=== PATIENT | female | born 1960 | race Caucasian/White ===

== ENCOUNTER → 2017-04-16 | Outpatient (CLI) | payer OTHER ==
[~2017-04-16] MED LIST: ALBUAER19 INH; CALC500C70 PO; FERR1TAB23 PO; FLNIN NAE; LORA0.5T12 PO; VITBC PO
--- NOTE | 2017-04-16 13:54 | MAMMOGRAPHY REPORT ---
BILATERAL DIGITAL SCREENING MAMMOGRAM TOMOSYNTHESIS WITH CAD: 04/16/2017 CLINICAL HISTORY: Routine screening. Patient has no complaints. TECHNIQUE: Breast tomosynthesis in addition to standard 2D mammography was performed. Current study was also evaluated with a Computer Aided Detection (CAD) system. COMPARISON: Comparison is made to exams dated: 04/24/2016 mammogram, 04/17/2015 mammogram, 4 mammogram, 04/14/2013 mammogram, 04/20/2012 mammogram, and 04/14/2011 mammogram - [facility]. BREAST COMPOSITION: The tissue of both breasts is heterogeneously dense, which may obscure small mas ses. FINDINGS: No suspicious masses, calcifications, or areas of architectural distortion are noted in ei ther breast. There has been no significant interval change compared to prior exams. Bilateral benign -appearing calcifications are again noted. Partially circumscribed and partially obscured mass in th e left inferior breast is stable dating back to at least the 2007 exam. A linear scar marker denotes a scar on the left upper outer breast. IMPRESSION: ACR BI-RADS CATEGORY 2: BENIGN There is no mammographic evidence of malignancy. A 1 year screening mammogram is recommended. The pa tient will receive written notification of the results. Approximately 10% of breast cancers are not detected with mammography. A negative mammographic report should not delay biopsy if a clinically suggestive mass is present. Debbie Obrien M.D. /:04/16/2017 10:50:31 Senior Training [employer] Development Rep: Adriana MERRILL(Chavo)(Sergio), [facility] letter sent: Normal 1/2 BI-RADS Code: ACR BI-RADS Category 2: Benign
== END | disposition home or self-care (01) ==
LOC: C.MAMM 10:00
PROVIDERS: ATTEND Internal Medicine
DX: Z12.31 Encounter for screening mammogram for malignant neoplasm of breast (principal)

== ENCOUNTER 2020-02-25 00:23 | Observation (INO) ==
--- NOTE | 2020-02-25 00:26 | Emergency Department Note ---
Impression & Plan Stroke-like episode, Acute headache, Acute left-sided weakness, Paresthesia of left arm and leg ED Provider Note Name: DEVAN CADENA Age: 59 Sex: F Arrives Via: Ambulance Informant: Patient, EMS, ED Provider: Sami Chang MD Chief Complaint: headache Impression: Stroke-Like Episode Acute Headache Acute Left-Sided Weakness Paresthesias of left arm and leg Medical Decision Makin yr old female with history of HTN, Asthma, Anxiety, Kidney Stone, DLP, GERD arrives with acute headache. Onset 11:30pm acute headache with left sided weakness and paresthesias. EMS contacted me from field to review case and noted patient with symptoms on their arrival but now resolution of all weakness. I met patient at bedside on EMS arrival and rapid stroke eval revealed left facial weakness and mild left arm/leg weakness and thus STROKE ALERT Called. Patient taken emergently to CT where CTa head w/wo contrast and cta neck w con revealed no acute findings. Reviewed with Stroke Neuro who advised mixing TPA and they would eval patient on telestroke. Patient taken to trauma bay and noted to have improving left arm strength and even moving blankets without any problem. arrived shortly thereafter and patient with continued improvement of symptoms. Dr Lopez evaluated patient at length and after discussion with pt/ plan to not give TPA as she has essentially complete resolution, especially given notes this has clearly happened previous. We discussed plan and she was given ASA, IV Depakote at Neuro's advise. She was further discussed with Hospitalist who will bring in for stroke work-up and evaluation. Given fact that is seems that this is not first time this is happened, though possibly the most severe case, I am suspicious for atypical migraine rather than acute ischemia, however she will clearly need to come in for further work-up and management to rule this out. She does not have evidence of sepsis/meningitis and I do not feel this is drug induced. Prior Medical Record and Triage/Nursing Notes reviewed by Me Additional history obtained from patient's Differentials:Infection, dehydration, metabolic abnormality, hypo/hyperglycemia, electrolyte disturbance, anemia, hypoxia, cardiac sources, intracerebral event, toxicologic, neurologic, as well as other pathologies. Vital Signs: reviewed and remarkable for HTN Interventions: ASA 324mg PO, Valproic Acid 500mg IV Labs:Reviewed and remarkable for no significant abnormalities Imaging:[facility] Radiologist interpretation reviewed by me: CT Head angio w wo con. cta neck w con no acute findings EKG:Per My Interpretation: Indication Stroke: NSR 86 bpm, qtc 483. No Ectopy. No Ischemia. Compared to EKG 05/26/2018, no significant changes. Cardiac/Tele Monitoring: Cardiac Monitoring: An Order was placed for continuous cardiac monitoring. The monitor shows a rate of 80 with a normal sinus rhythm. Consults:Stroke Neurologist Dr Lopez: Initially mix TPA though after furth er evaluation patient advised not giving TPA. Advised ASA and IV Valproic Plan: Disposition:Hospitalization. Condition: Good Blood pressure:Elevated - Referred to Hospitalist Prescriptions:none PDMP: n/a History of Present Illness:59 female arrives for evaluation of sudden onset headache at 11:30 pm about 30 minutes prior to arrival. Associated with photophobia and inability to use arm. EMS arrived and noted left arm weakness which rapidly resolved. Patient hypertensive. No medications prior to arrival. Patient denies headache history. No trauma nor injuries. Notes associated nausea and initially some mild chest discomfort which resolved. States she feels weak. Patient states on arrival this has never happened previously. Denies shob, neck pain/stiffness, fevers, abdominal pain, back pain, urinary symptoms, rashes, swelling nor other symptoms. ROS: See above HPI for pertinent positives & negatives. A total of 10 systems reviewed and were otherwise negative. Past Medical History:See Below Past Surgical History:See Below Family History:See Below Social History:See Below Home Medications:See Below Allergies:Clindamycin, Carbamazepine Vitals:Blood Pressure: 171/91, Pulse 74, RR 20, T 37.1C, O2 95% on RA Physical Exam: GENERAL: Patient is anxious appearing and in mild distress. EYES: No scleral icterus, unremarkable pupils. ENT: Mucous membranes moist, no nasal congestion. NECK: No masses appreciated, nomeningismus, trachea is midline. RESPIRATORY: No dyspnea. Clear to auscultation and equal bilaterally. No wheeze, no rhonchi. CARDIOVASCULAR: Regular rate and rhythm.No murmurs, rubs, gallops appreciated. GASTROINTESTINAL: Abdomen soft, non-tender, no peritonitis.Bowel sounds positive.No masses appreciated. BACK: No midline tenderness, no CVA tenderness EXTREMITIES: Normal motion all extremities, no cyanosis, no edema. NEUROLOGIC: Left facial weakness (lower worse than upper), left arm 4/5 hand strength, 5/5 prox. Left leg 4/5 prox and 4/5 distal. Right side 5/5. Perceived decreased sensation left side of body. Alert and oriented. SKIN: No rash, no jaundice, no diaphoresis. PSYCH: Appropriate GCS: 15 ED Course: Times/Reassessments: Extended bedside management and evaluations throughout ED stay Critical Care: I have personally spent 45 minutes of critical care time in the direct management of this patient. Acute Stroke episode with stroke alert called, TPA mixed and Neurology acute evaluation. This was a life/limb threatening event. This 45 minutes is in excess of all separately billable procedures. Sami Chang MD Past Med/Surg History Medical History (Updated 02/25/20 @ 07:30 by Sami Chang MD) Abnormal vaginal bleeding Chronic interstitial cystitis DUB (dysfunctional uterine bleeding) Kidney stone Neuralgia Trigeminal neuralgia Surgical History (Updated 08/26/19 @ 12:21 by Keyla Amor MD, FACOG) S/P breast biopsy 2008, needle localization, Dr. Rollins, benign calcifications S/P section S/P colonoscopy S/P endometrial ablation 2014 Family History (Updated 04/01/19 @ 18:04 by Velma Robertson) Mother Ovarian cancer Social History (Updated 05/19/19 @ 15:34 by Latha Arriola) Smoking Status: Never smoker Hx Alcohol Use: No Hx Substance Use: No Preferred Language: Urdu Communication Ability: Effective Uke Operator Required: No Beliefs That Will Affect Care: None marital status: Current Living Situation: Spouse Other Information That Helps Us Care for You: No Feels Safe at Home: Yes Safety Concerns: Feels Safe At This Time Allergies Allergies Allergy/AdvReac Type Severity Reaction Status Date / Time carbamazepine Allergy Unknown NAUSEA Verified 02/25/20 01:01 clindamycin AdvReac Mild METALLIC Verified 02/25/20 01:01 TASTE IN MOUTH Home Meds Home Medications Medication Instructions Recorded Confirmed lorazepam 0.5 mg PO TID PRN #0 03/21/13 02/25/20 vitamin B complex 1 tab PO DAILY #0 03/21/13 02/25/20 atorvastatin 10 mg tablet 10 mg PO DAILY tab 04/01/19 02/25/20 cetirizine 10 mg tablet 10 mg PO BID PRN tab 04/01/19 02/25/20 omeprazole 20 mg capsule,delayed 20 mg PO BID cap 04/01/19 02/25/20 release cyclobenzaprine 10 mg PO BID PRN 02/25/20 02/25/20 Results & Data (ED) Vital Signs Vital Signs - 24 hr 02/25/20 00:26 02/25/20 00:27 02/25/20 00:47 Pulse Rate 74 73 Pulse Rate from SpO2 Sensor Respiratory Rate 16 13 Respiratory Depth Normal Blood Pressure 168/99 H 168/99 H Blood Pressure Mean 126 122 Blood Pressure Position Lying Pulse Oximetry 98 Oxygen Delivery Method Room Air Sepsis Recent Fever Within 48 Hours No Sepsis New/Unexplained Change in Mental Status No Sepsis Action Taken by Nursing No Action Required 02/25/20 00:50 02/25/20 01:00 02/25/20 01:10 Pulse Rate 70 70 76 Pulse Rate from SpO2 Sensor 70 69 76 Respiratory Rate 15 22 Respiratory Depth Blood Pressure 175/92 H 178/95 H 179/95 H Blood Pressure Mean 110 116 125 Blood Pressure Position Pulse Oximetry 95 96 97 Oxygen Delivery Method Sepsis Recent Fever Within 48 Hours Sepsis New/Unexplained Change in Mental Status Sepsis Action Taken by Nursing 02/25/20 01:15 02/25/20 01:17 02/25/20 01:30 Pulse Rate 67 67 65 Pulse Rate from SpO2 Sensor 67 67 Respiratory Rate 14 14 20 Respiratory Depth Blood Pressure 183/93 H 169/94 H Blood Pressure Mean 109 112 Blood Pressure Position Pulse Oximetry 96 96 96 Oxygen Delivery Method Sepsis Recent Fever Within 48 Hours Sepsis New/Unexplained Change in Mental Status Sepsis Action Taken by Nursing 02/25/20 02:00 Pulse Rate 63 Pulse Rate from SpO2 Sensor 63 Respiratory Rate 13 Respiratory Depth Blood Pressure 151/90 H Blood Pressure Mean 102 Blood Pressure Position Pulse Oximetry 96 Oxygen Delivery Method Room Air Sepsis Recent Fever Within 48 Hours Sepsis New/Unexplained Change in Mental Status Sepsis Action Taken by Nursing Laboratory Data Result diagrams: 02/25/20 05:37 02/25/20 05:37 Lab Results 02/25/20 02/25/20 02/25/20 Range/Units 00:49 00:49 00:49 WBC 4.00 L (4.8-10.8) K/uL RBC 4.17 L (4.2-5.4) M/uL Hgb 12.7 (12.0-16.0) g/dL Hct 37.7 (37-47) % MCV 90.4 (80-100) fL MCH 30.5 (25-34) pg MCHC 33.7 (32-36) g/dL RDW Std Deviation 40.9 (36.4-46.3) fL RDW Coeff of Keisha 12.4 (11.5-14.5) % Plt Count 181 (130-400) K/uL MPV 10.2 (7.4-10.4) fL Immature Gran % (Auto) 0.0 % Neut % (Auto) 49.9 % Lymph % (Auto) 37.0 % [place] % (Auto) 7.8 % Eos % (Auto) 5.0 % Baso % (Auto) 0.3 % Neut # (Auto) 2.00 (1.4-6.5) K/uL Lymph # (Auto) 1.48 (1.2-3.4) K/uL [place] # (Auto) 0.31 (0.11-0.59) K/uL Eos # (Auto) 0.20 (0-0.5) K/uL Baso # (Auto) 0.01 (0-0.2) K/uL Immature Gran # (Auto) 0.00 (0.00-0.02) K/uL PT 11.6 (9.0-12.0) Seconds INR 1.1 (0.9-1.1) APTT 26.8 (21.0-31.0) Seconds PTT Ratio 1.0 Sodium (136-145) mmol/L Potassium (3.5-5.1) mmol/L Chloride (98-107) mmol/L Carbon Dioxide (21-32) mmol/L Anion Gap (3-11) BUN (7-18) mg/dl Creatinine (0.6-1.2) mg/dl Est Cr Clr Drug Dosing ml/min Est GFR ( Amer) Est GFR (Non-Af Amer) BUN/Creatinine Ratio (10-20) Glucose (70-99) mg/dl Calcium (8.5-10.1) mg/dl Magnesium (1.8-2.4) mg/dl Total Bilirubin (0.2-1) mg/dl AST (15-37) U/L ALT (12-78) U/L Alkaline Phosphatase (45-117) U/L Troponin I (0-0.045) ng/ml Total Protein (6.4-8.2) gm/dl Albumin (3.4-5.0) gm/dl Globulin (2.5-4.0) gm/dl Albumin/Globulin Ratio (0.9-2) Blood Type O Positive Antibody Screen NEGATIVE 02/25/20 Range/Units 00:49 WBC (4.8-10.8) K/uL RBC (4.2-5.4) M/uL Hgb (12.0-16.0) g/dL Hct (37-47) % MCV (80-100) fL MCH (25-34) pg MCHC (32-36) g/dL RDW Std Deviation (36.4-46.3) fL RDW Coeff of Keisha (11.5-14.5) % Plt Count (130-400) K/uL MPV (7.4-10.4) fL Immature Gran % (Auto) % Neut % (Auto) % Lymph % (Auto) % [place] % (Auto) % Eos % (Auto) % Baso % (Auto) % Neut # (Auto) (1.4-6.5) K/uL Lymph # (Auto) (1.2-3.4) K/uL [place] # (Auto) (0.11-0.59) K/uL Eos # (Auto) (0-0.5) K/uL Baso # (Auto) (0-0.2) K/uL Immature Gran # (Auto) (0.00-0.02) K/uL PT (9.0-12.0) Seconds INR (0.9-1.1) APTT (21.0-31.0) Seconds PTT Ratio Sodium 137 (136-145) mmol/L Potassium 3.3 L (3.5-5.1) mmol/L Chloride 104 (98-107) mmol/L Carbon Dioxide 29 (21-32) mmol/L Anion Gap 4.0 (3-11) BUN 10 (7-18) mg/dl Creatinine 0.71 (0.6-1.2) mg/dl Est Cr Clr Drug Dosing 75.8 ml/min Est GFR ( Amer) 107.3 Est GFR (Non-Af Amer) 92.6 BUN/Creatinine Ratio 14.3 (10-20) Glucose 97 (70-99) mg/dl Calcium 8.7 (8.5-10.1) mg/dl Magnesium 2.1 (1.8-2.4) mg/dl Total Bilirubin 0.4 (0.2-1) mg/dl AST 14 L (15-37) U/L ALT 13 (12-78) U/L Alkaline Phosphatase 68 (45-117) U/L Troponin I < 0.015 (0-0.045) ng/ml Total Protein 6.3 L (6.4-8.2) gm/dl Albumin 3.2 L (3.4-5.0) gm/dl Globulin 3.1 (2.5-4.0) gm/dl Albumin/Globulin Ratio 1.0 (0.9-2) Blood Type Antibody Screen Administered Medications Sodium Chloride (Nss 1000ml) 1,000 mls @ 100 mls/hr IV .Q10H OTONIEL Stop: 02/25/20 16:00 Last Admin: 02/25/20 04:23 Dose: 100 mls/hr Documented by: [id number] Discontinued Medications Alteplase, Recombinant (Tpa For Stroke) 1 ea IV NOW STA; Protocol Stop: 02/25/20 00:52 Last Admin: 02/25/20 01:52 Dose: Not Given Documented by: [id number] Aspirin (Aspirin Chew 324 Mg) 324 mg PO NOW STA Stop: 02/25/20 01:43 Last Admin: 02/25/20 01:58 Dose: 324 mg Documented by: [id number] Alteplase, Recombinant 6.2 mg/ (Syringe) 6.2 mls @ 6.2 mls/min IV ONCE ONE Stop: 02/25/20 01:02 Last Admin: 02/25/20 01:53 Dose: Not Given Documented by: [id number] Alteplase, Recombinant 55 mg/ (EMPTY BAG) 55 mls @ 55 mls/hr IV ONCE ONE Stop: 02/25/20 01:03 Last Admin: 02/25/20 01:53 Dose: Not Given Documented by: [id number] Valproic Acid 500 mg/ Dextrose 55 mls @ 55 mls/hr IV NOW STA Stop: 02/25/20 02:41 Last Infusion: 02/25/20 02:58 Dose: 0 mls/hr Documented by: [id number] Admin: 02/25/20 01:58 Dose: 55 mls/hr Documented by: [id number] Ioversol (Optiray 320 125ml) 119 ml IV ONCE ONE Stop: 02/25/20 01:13 Last Admin: 02/25/20 01:12 Dose: 119 ml Documented by: [id number] Discharge Plan Visit Data Chief Complaint: Headache Stated Complaint: HEADACHE/NEURO SYMPTOMS ED Provider: Sami Chang Discharge Problem: Stroke-like episode, Acute headache, Acute left-sided weakness, Paresthesia of left arm and leg Patient Disposition: Admitted As Inpatient Discharge Instructions Interventions: ED Discharge Assessment Last Done: 02/25/20 03:33 Discharge Problem: Acute headache Qualifiers: Headache type: unspecified Intractability: not intractable Qualified Code(s): R51 - Headache
[2020-02-25] MEDS ORDERED: TPA for Stroke IV STA (00:51)
[2020-02-25 01:01] LABS: Basophils # (auto) 0.01 K/uL (0-0.2); Basophils % (auto) 0.3 %; Hematocrit (blood only) 37.7 % (37-47); Hemoglobin 12.7 g/dL (12.0-16.0); Lymphocytes # (auto) 1.48 K/uL (1.2-3.4); Mean Corpuscular Hemoglobin 30.5 pg (25-34); Mean Corpuscular Hgb Conc 33.7 g/dL (32-36); Mean Corpuscular Volume 90.4 fL (80-100); Mean Platelet Volume 10.2 fL (7.4-10.4); Monocytes # (auto) 0.31 K/uL (0.11-0.59); Monocytes % (auto) 7.8 %; Neutrophils % (auto) 49.9 %; Platelet Count 181 K/uL (130-400); RDW Coefficient of Variation 12.4 % (11.5-14.5); RDW Standard Deviation 40.9 fL (36.4-46.3); Red Blood Count 4.17 M/uL (4.2-5.4)
[2020-02-25] MEDS ORDERED: ALTEPLASE BOLUS IV ONE (01:01)
[2020-02-25] MEDS ORDERED: RECOMBINANT IV ONE (01:02)
[2020-02-25] MEDS ORDERED: PRIMARY PLUMSET, PE LINED TUBING, 113 IN, NON-DEHP (2260-0500) IV ONE (01:02)
[2020-02-25] MEDS ORDERED: ALTEPLASE IV ONE (01:02)
[2020-02-25] MEDS ORDERED: OPTIRAY 320 125ml IV ONE (01:12)
[2020-02-25 01:14] LABS: INR 1.1 (0.9-1.1); Partial Thromboplastin Time 26.8 Seconds (21.0-31.0); Prothrombin Time 11.6 Seconds (9.0-12.0)
[2020-02-25 01:20] LABS: Alanine Aminotransferase 13 U/L (12-78); Albumin Level 3.2 gm/dl (3.4-5.0); Aspartate Aminotransferase 14 U/L (15-37); BUN Creatinine Ratio 14.3 (10-20); Blood Urea Nitrogen 10 mg/dl (7-18); Calcium 8.7 mg/dl (8.5-10.1); Carbon Dioxide 29 mmol/L (21-32); Chloride 104 mmol/L (98-107); Creatinine Clr Calc Pharmacy 75.8 ml/min; Est GFR (African American) 107.3; Est GFR (Non-African American) 92.6; Glucose 97 mg/dl (70-99); Magnesium 2.1 mg/dl (1.8-2.4); Potassium 3.3 mmol/L (3.5-5.1); Sodium 137 mmol/L (136-145)
[2020-02-25 01:25] LABS: Alkaline Phosphatase 68 U/L (45-117); Bilirubin,Total 0.4 mg/dl (0.2-1); Globulin 3.1 gm/dl (2.5-4.0); Total Protein 6.3 gm/dl (6.4-8.2); Troponin I < 0.015 ng/ml (0-0.045)
[2020-02-25] MEDS ORDERED: ASPIRIN CHEW 324 MG PO STA (01:42)
[2020-02-25] MEDS ORDERED: VALPROATE SOD 500 MG in DEXTROSE 5% 50 ML IV STA (01:42)
[2020-02-25] MEDS ORDERED: NITROGLYCERIN SL 0.4 MG/TAB TAB SL PRN (04:01)
[2020-02-25] MEDS ORDERED: ACETAMINOPHEN 325 MG TAB PO PRN (04:01)
[2020-02-25] MEDS ORDERED: LORazepam 0.5 MG TAB PO PRN (04:01)
[2020-02-25] MEDS ORDERED: CETIRIZINE HCL 10 MG TABLET PO PRN (04:01)
[2020-02-25] MEDS ORDERED: SODIUM CHLORIDE 0.9% 1000ML 1,000 ML IV SCH (04:01)
[2020-02-25] MEDS ORDERED: POLYETHYLENE (MIRALAX) 17 GM PACK PO PRN (04:01)
[2020-02-25] MEDS ORDERED: PHARMACIST DISCHARGE MED REC CONSULT PRN (04:01)
[2020-02-25] MEDS ORDERED: ONDANSETRON INJ 2 MG/ML 2 ML VIAL IV PRN (04:01)
[2020-02-25] MEDS ORDERED: CYCLOBENZAPRINE HCL 10 MG TAB PO PRN (04:11)
--- NOTE | 2020-02-25 04:41 | History and Physical Report ---
DATE OF ADMISSION: 02/25/2020 CHIEF COMPLAINT: Headache and left-sided numbness. HISTORY OF PRESENT ILLNESS: This is a 59-year-old female with past medical history significant for allergic rhinitis, GERD, irritable bowel syndrome, history of dislocation of jaw, atypical face pain, chest pain, history of tobacco abuse, who lives at home with her who was brought in because of complaining of nausea, headache, and left-sided numbness. The symptoms started around 9:00 p.m. yesterday evening. As they were not getting better, she was brought to the hospital. Initially stroke alert was called, but the symptoms seemed improved and imaging studies were okay. [place] neurologist thought it could be atypical migraine and she was started on Depakote. Currently, she said that left hand numbness and weakness improved. Thinks the left leg is a little heavy, but also that symptoms are much improved. Speech is okay. No dysphagia. No facial droop seen. The patient also complains of some chest pressure on the left side that is still slightly present. Denies any headache. No dizziness, no blurred visions. She has some floaters in the right eye since 1 month. No earache, no runny nose, no sore throat, no cough, no fevers, no shortness of breath, no abdominal pain. Normal bowel and bladder movements. No rash seen. Otherwise, ambulates and climbs steps okay at home. ALLERGIES: DUST, MOLD, POLLEN, CLINDAMYCIN. PAST MEDICAL HISTORY: As mentioned above. PAST SURGICAL HISTORY: , colonoscopy, cystoscopy, right molar implant. MEDICATIONS: The patient is on Flexeril 10 mg p.o. b.i.d. p.r.n., omeprazole 20 mg p.o. b.i.d., Ativan 0.5 mg p.o. t.i.d. p.r.n., cetirizine 10 mg p.o. b.i.d. p.r.n., atorvastatin 10 mg p.o. daily, vitamin B complex 1 tablet daily. FAMILY HISTORY: Significant for mother has arthritis, stomach cancer, diabetes, hypertension, and thyroid disorder. SOCIAL HISTORY: . Former smoker, quit many years ago. Alcohol occasional. No drug use. REVIEW OF SYSTEMS: As per HPI. Rest of the review of systems negative. PHYSICAL EXAMINATION: GENERAL: The patient is of moderate built, not in acute distress. VITAL SIGNS: Temperature afebrile, pulse 65, respiratory rate 20, blood pressure 169/94, oxygen 96% on room air. HEENT: Pupils equal, round, and reactive to light. Extraocular muscles intact. NECK: No JVD. No carotid bruit, no neck masses. CARDIOVASCULAR: S1, S2 heard, regular rate and rhythm, no murmur, no gallop. RESPIRATORY SYSTEM: Normal AP diameter. No accessory muscle use. No wheezing, no crackles. ABDOMEN: Soft, bowel sounds present, nontender. No distention. CENTRAL NERVOUS SYSTEM: Alert and oriented. No facial droop seen. Speech is clear. Able to lift her lower extremity and hold a few seconds. Power 5/5 in all extremities, may be 4-5/5 in the left lower extremity. Sensation is intact. No pronator drift. Coordination of movements normal. Position sense intact. EXTREMITIES: No edema, no erythema. LABORATORY DATA: WBC 4, hemoglobin 12.7, hematocrit 37.7, platelets 181. PT 11.6, INR 1.1, APTT 26.8. Sodium 137, potassium 3.3, chloride 104, bicarbonate 29, BUN 10, creatinine 0.7, serum glucose 97, calcium 8.7, magnesium 2.1, total bilirubin 0.4, AST 14, ALT 13, alkaline phosphatase 68, troponin I less than 0.015. IMAGING DATA: CT of the head, no intracranial findings. CTA of the head, no acute findings. CTA of the neck, no acute findings on preliminary reports. EKG: Normal sinus rhythm with a rate of 86, no significant change was found. ASSESSMENT AND PLAN: This is a 59-year-old female who presents with headache and stroke-like symptoms. 1. Headache and stroke-like symptoms with left-sided numbness and weakness. The symptoms improved. Initial workup with a CT of the head and CTA of the head and neck are unremarkable on preliminary report. [place] neurologist thought it could be atypical migraine and started on Depakote. She was getting a dose of Depakote in the ER. Currently hemodynamically stable. We will do a full stroke workup with MRI scan, echo, speech evaluation, and neuro evaluation in the a.m. and monitor in the tele floor. 2. Left sided chest pressure with left hand numbness. Initial troponin is negative. EKG is unremarkable. We will follow the serial enzymes and echocardiogram. Consult cardiology in the a.m. 3. Hypertension, blood pressure is running at 169/94. We will allow for permissive hypertension for possible cerebrovascular accident. We will monitor the blood pressure. 4. Hyperlipidemia, on statin. Follow fasting lipid profile. 5. Gastroesophageal reflux disease, continue omeprazole. 6. Deep venous thrombosis prophylaxis, sequential compression devices. DISPOSITION: Admit to observe in tele floor. Expect to discharge home and follow with family doctor. PT and OT prior to discharge. Social service to help with discharge planning. JORGE ALBERTO
[2020-02-25 05:59] LABS: Basophils # (auto) 0.01 K/uL (0-0.2); Basophils % (auto) 0.2 %; Hematocrit (blood only) 38.8 % (37-47); Hemoglobin 13.3 g/dL (12.0-16.0); Immature Granulocytes # (auto) 0.01 K/uL (0.00-0.02); Immature Granulocytes % (auto) 0.2 %; Lymphocytes # (auto) 1.43 K/uL (1.2-3.4); Lymphocytes % (auto) 28.4 %; Mean Corpuscular Hemoglobin 30.9 pg (25-34); Mean Corpuscular Hgb Conc 34.3 g/dL (32-36); Mean Platelet Volume 10.1 fL (7.4-10.4); Monocytes # (auto) 0.28 K/uL (0.11-0.59); Monocytes % (auto) 5.6 %; Neutrophils % (auto) 61.6 %; Platelet Count 192 K/uL (130-400); RDW Coefficient of Variation 12.4 % (11.5-14.5); RDW Standard Deviation 40.7 fL (36.4-46.3); Red Blood Count 4.31 M/uL (4.2-5.4); White Blood Count 5.03 K/uL (4.8-10.8)
[2020-02-25 06:28] LABS: BUN Creatinine Ratio 11.1 (10-20); Blood Urea Nitrogen 8 mg/dl (7-18); Calcium 8.8 mg/dl (8.5-10.1); Carbon Dioxide 26 mmol/L (21-32); Chloride 109 mmol/L (98-107); Cholesterol 162 mg/dl (0-200); Creatinine Clr Calc Pharmacy 67.6 ml/min; Est GFR (African American) 109.1; Est GFR (Non-African American) 94.2; Glucose 98 mg/dl (70-99); Potassium 3.4 mmol/L (3.5-5.1); Sodium 140 mmol/L (136-145); Triglycerides 70 mg/dl (0-150); VLDL Cholesterol 14 mg/dl
[2020-02-25 06:32] LABS: Chol HDL Ratio 2; HDL Cholesterol 69 mg/dl; LDL Cholesterol Calculated 79 mg/dl; Troponin I < 0.015 ng/ml (0-0.045)
[2020-02-25 07:34] LABS: Estimated Average Glucose 105 mg/dl; Hemoglobin A1C 5.3 % (4.5-5.6)
[2020-02-25] MEDS ORDERED: SUMAtriptan succinate 25 MG TAB PO PRN (07:41)
--- NOTE | 2020-02-25 08:09 | CT Scan Report ---
HEAD CT NONCONTRAST CT DOSE: HISTORY: Stroke symptoms. Stroke evaluation TECHNIQUE: Multiaxial CT images of the head were performed without the use of intravenous contrast. A utomated exposure control was utilized for this study. A dose lowering technique was utilized adheri ng to the principles of ALARA. Comparison: None. Findings: The paranasal sinuses and mastoid air cells are clear. The calvarium and skull base are int act. The ventricles and sulci are within normal limits. There is no mass, hematoma, midline shift, or acute infarct. Impression: No acute intracranial abnormality. ACT 112: Negative or not required by law. Electronically signed by: Victor M Munoz M.D. 02/25/2020 8:07 AM
--- NOTE | 2020-02-25 08:13 | CT Scan Report ---
HEAD & NECK CTA HISTORY: Stroke evaluation TECHNIQUE: Multiaxial CT images of the head were performed following the intravenous administration o f contrast to evaluate the major cerebral vessels. Multiaxial CT images of the neck were also perform ed following the intravenous administration of contrast to evaluate the major cervical vessels. Maxim um intensity projection images were also obtained. A dose lowering technique was utilized adhering to the principles of ALARA. COMPARISON: None. FINDINGS: There is no mass, hematoma, midline shift, or acute infarct. Visualized intracranial internal carotid arteries, distal vertebral arteries, and basilar artery are widely patent. There is no significant s tenosis, occlusion, or aneurysm seen within the bilateral ACAs, MCAs, or compress machine operator. Mild mucosal thickenin g within the left maxillary sinus. The aortic arch and proximal great vessels are widely patent. There is no significant stenosis, occ lusion, or dissection identified within the bilateral common carotid, internal carotid, or vertebral arteries. IMPRESSION: 1. No significant stenosis, occlusion, or aneurysm within the [place] of [place]. 2. No significant stenosis, occlusion, or dissection identified within the carotid or vertebral arter ies. ACT 112: Negative or not required by law. Electronically signed by: Victor M Munoz M.D. 02/25/2020 8:12 AM
--- NOTE | 2020-02-25 08:13 | CT Scan Report ---
HEAD & NECK CTA HISTORY: Stroke evaluation TECHNIQUE: Multiaxial CT images of the head were performed following the intravenous administration o f contrast to evaluate the major cerebral vessels. Multiaxial CT images of the neck were also perform ed following the intravenous administration of contrast to evaluate the major cervical vessels. Maxim um intensity projection images were also obtained. A dose lowering technique was utilized adhering to the principles of ALARA. COMPARISON: None. FINDINGS: There is no mass, hematoma, midline shift, or acute infarct. Visualized intracranial internal carotid arteries, distal vertebral arteries, and basilar artery are widely patent. There is no significant s tenosis, occlusion, or aneurysm seen within the bilateral ACAs, MCAs, or media specialist. Mild mucosal thickenin g within the left maxillary sinus. The aortic arch and proximal great vessels are widely patent. There is no significant stenosis, occ lusion, or dissection identified within the bilateral common carotid, internal carotid, or vertebral arteries. IMPRESSION: 1. No significant stenosis, occlusion, or aneurysm within the three affiliated of [place]. 2. No significant stenosis, occlusion, or dissection identified within the carotid or vertebral arter ies. ACT 112: Negative or not required by law. Electronically signed by: Victor M Munoz M.D. 02/25/2020 8:12 AM
[2020-02-25] MEDS ORDERED: POTASSIUM CHLORIDE 20 MEQ TABCR PO ONE (08:15)
--- NOTE | 2020-02-25 08:38 | Hospitalist Progress Note ---
Date of Service February 25, 2020 Assessment & Plan (1) Complicated migraine: with associated left sided numbness and headache -Patient presented to hospital overnight after feeling nausea, headache, chest discomfort and left-sided numbness. Symptom started around 9PM on 02/24/2020 -Initial workup with a CT of the head and CTA of the head and neck are unremarkable. [place] neurologist thought it could be atypical migraine and started on Depakote. She was getting a dose of Depakote in the ER. -Patient's blood pressure was found to be elevated and patient reports that in the recent past prior to these symptoms, here systolic blood pressure around 150 to 160 but not more elevated than that. her blood systolic blood pressure in the ED as elevated as 182. Patient is not on any anti-hypertensives at home. -Patient in the AM when seen by day time hospitalist reports that all symptoms have resolved. She does not have any acute discomforts or numbness at this time. She reports that symptoms started resolving when she was in the ED. Patient is encouraged to ambulate in the hallway in the hospital -MRI brain as ordered by admitting physician awaiting to be performed -aspirin 81 mg daily empirically started -start amlodipine 5 mg daily for blood pressure. added sumatriptan q12 hour prn if headache -appreciate further inpatient neurology consult recommendations (2) Hypertension: Hyperlipidemia -start amlodipine 5 mg daily -LDL is 79, can continue home dose atorvastatin as 10 mg daily as lipid panel shows reasonable controlled cholesterol and LDL (3) Chest pain: -chest pain was associated with headache and left sided numbness symptoms -troponins negative x 2 -echocardiogram performed and results to be read -no current chest pain at this time Gastroesophageal reflux disease -continue PPI Hypokalemia, mild -serum potassium 3.3 on initial labs -give potassium supplements Admission and Anticipated Discharge Date Admission Date: February 25, 2020 Subjective Patient presented to hospital overnight after feeling nausea, headache, chest discomfort and left-sided numbness. Patient's blood pressure was found to be elevated and patient reports that in the recent past prior to these symptoms, here systolic blood pressure around 150 to 160 but not more elevated than that. her blood systolic blood pressure in the ED as elevated as 182. Patient is not on any anti-hypertensives at home. Patient in the AM when seen by day time hospitalist reports that all symptoms have resolved. She does not have any acute discomforts or numbness at this time. She reports that symptoms started resolving when she was in the ED. Patient is encouraged to ambulate in the hallway in the hospital Review of Systems Review of Systems: All systems reviewed & are unremarkable except as noted in Subjective Physical Exam Constitutional: comfortable Eyes: PERRL, conjunctivae normal, anicteric sclerae EOM intact bilaterally ENMT: external ear and nose normal, oropharynx normal Neck: trachea midline, no thyromegaly normal visual inspection Respiratory: normal respiratory effort, lungs clear to auscultation normal respiratory effort Cardiovascular: Rate/Rhythm: regular rate and regular rhythm Gastrointestinal (Abdomen): normal bowel sounds, soft, nontender, no hepatosplenomegaly Musculoskeletal: Head/Neck/Chest: normocephalic and head atraumatic Neurologic: PERRL, EOMI, accommodation nl, no face palsy, no dysarthria CN's II-XI intact bilaterally Psychiatric: A+Ox3, euthymic affect Results & Data Results & Data ([facility]) Vital Signs (Past 12 Hours) Vital Signs Temp Pulse Pulse Pulse Resp BP BP 02/25/20 08:09 36.8 C 74 20 168/86 H 02/25/20 03:52 37.1 C 74 20 02/25/20 03:33 57 L 18 138/78 02/25/20 03:04 60 20 165/92 H 02/25/20 02:00 63 13 151/90 H 02/25/20 01:30 65 20 169/94 H 02/25/20 01:17 67 14 02/25/20 01:15 67 14 183/93 H 02/25/20 01:10 76 22 179/95 H 02/25/20 01:00 70 178/95 H 02/25/20 00:50 70 15 175/92 H 02/25/20 00:47 73 13 02/25/20 00:27 74 16 168/99 H 02/25/20 00:26 168/99 H BP Pulse Ox 02/25/20 08:09 96 02/25/20 03:52 171/91 H 95 02/25/20 03:33 97 02/25/20 03:04 95 02/25/20 02:00 96 02/25/20 01:30 96 02/25/20 01:17 96 02/25/20 01:15 96 02/25/20 01:10 97 02/25/20 01:00 96 02/25/20 00:50 95 02/25/20 00:47 02/25/20 00:27 98 02/25/20 00:26
[2020-02-25] MEDS ORDERED: VITAMIN B COMPLEX TAB PO SCH (09:00)
[2020-02-25] MEDS ORDERED: AMLODIPINE BESYLATE 5 MG TAB PO ONE (09:00)
[2020-02-25] MEDS ORDERED: PANTOprazole 40 MG TAB PO SCH (09:00)
[2020-02-25] MEDS ORDERED: ATORVASTATIN 10 MG TAB PO SCH (09:00)
[2020-02-25] MEDS ORDERED: ASPIRIN 81 MG ECTAB PO SCH (09:00)
[2020-02-25] MEDS ORDERED: MoRPHine SULFATE 2 MG/ML CARP IV STA (09:13)
[2020-02-25] MEDS ORDERED: MoRPHine SULFATE 2 MG/ML CARP ONE (09:15)
[2020-02-25] MEDS ORDERED: LORazepam 0.25 MG/0.5 ML VIAL IV PRN (10:34)
--- NOTE | 2020-02-25 11:10 | Consultation Report ---
DATE OF CONSULTATION: 02/25/2020 NEUROLOGY CONSULTATION CHIEF COMPLAINT: Headache and left-sided numbness. HISTORY OF PRESENT ILLNESS: A 59-year-old woman with past medical history significant for irritable bowel syndrome, atypical facial pain, chest pain and history of tobacco abuse, complaining of nausea and headache and left-sided numbness. The symptoms started yesterday evening around 9:00 p.m. She was brought to the Emergency Room and a stroke alert was called. Symptoms had improved upon arrival. [place] telemedicine consultation was performed and it was thought that this could be an atypical migraine for which she was started on Depakote. Upon admission, symptoms had significantly improved. Neurology was consulted for further evaluation. ALLERGIES: DUST, MOLD, POLLEN, CLINDAMYCIN. PAST MEDICAL HISTORY: Gastroesophageal reflux disease, allergic rhinitis, irritable bowel syndrome, atypical facial pain, and history of tobacco abuse. PAST SURGICAL HISTORY: She had a section, colonoscopy, cystoscopy and right molar implant. HOME MEDICATIONS: Include Flexeril, omeprazole, Ativan as needed, atorvastatin and B-complex vitamin. FAMILY HISTORY: Her mother had arthritis, stomach cancer, diabetes, hypertension, thyroid disorder. SOCIAL HISTORY: She is . She is a former smoker. She quit smoking many years ago. Alcohol occasionally and no drug use. REVIEW OF SYSTEMS: Negative except as noted above in the HPI. PHYSICAL EXAMINATION: VITAL SIGNS: Blood pressure 158/83, pulse 81, respiratory rate 18, temperature 36.8, oxygen saturation 95% on room air. EXAM: Constitutional: appearance normally developed Face: normocephalic and atraumatic Eyes: normal lids, normal conjunctiva Neck: supple Respiratory: normal effort Cardiovascular: normal pulses Abdomen: non distended Skin: no rashes, lesions, or ulcers noted Psychiatric: normal mood and normal affect NEUROLOGIC EXAMINATION: Appearance: no acute distress Orientation: awake, alert and oriented x 3 Mental Status: alert Attention: normal Knowledge: appropriate Language: no aphasia Speech: no dysarthria Cranial Nerves: CN 2 - no visual defect on confrontation and pupils round, equal CN 3, 4, 6 - extra-ocular movements intact CN 5 - facial sensation intact CN 7 - no facial asymmetry CN 8 - intact hearing CN 9, 10 - palate symmetric CN 11 - good shoulder shrug CN 12 - tongue midline Gait:deferred Coordination: no ataxia with finger to nose testing Sensory: intact and symmetric to light touch Muscle Tone: normal Muscle exam: No asymmetry or weakness noted on examine Reflexes: No ankle clonus, Negative ross Bilateral LABORATORY DATA: WBC is 5.03, hemoglobin is 13.3, hematocrit 38.8, platelet count is 192. INR is 1.1. Chemistries: Sodium is 140, potassium 3.4, chloride is 109, glucose is 98, magnesium is 2.1. LDL cholesterol was 79. IMAGING: Head CT noncontrast showed no acute intracranial abnormality. Head CTA and CTA neck showed no significant stenosis, occlusion or aneurysm within the [place]. No significant stenosis, occlusion, dissection identified within the carotid or vertebral arteries. ASSESSMENT AND PLAN: A 59-year-old woman with history of migraine headache admitted with accelerated blood pressures, headache, chest pain, and left sided numbness and weakness. Symptoms rapidly improved. CTA head and neck Negative. No focal deficit noted on examine this morning. Differential diagnosis includes TIA Vs migraine w aura Vs Anxiety. Agree with starting medication for blood pressure. Goal SBP < 140, DBP<90 mm Hg. Agree with starting ASA 81 mg daily. MRI brain pending. Otherwise, I ask the patient to keep a headache log. If headaches persist, will discuss headache prophylactic medications as an outpatient. Neurology follow up in 8 weeks. JORGE ALBERTO
[2020-02-25] MEDS ORDERED: GADOBUTROL 30ML VIAL IV ONE (12:10)
--- NOTE | 2020-02-25 12:26 | Magnetic Resonance Report ---
Brain MRI WITH AND WITHOUT CONTRAST HISTORY: Left facial pain. Nausea. Headaches. Left-sided numbness. Possible stroke. TECHNIQUE: Multiplanar multisequence MRI of the brain was performed both before and after the intrave nous administration of contrast. COMPARISON STUDY: Head CT 02/25/2020. FINDINGS: There are no areas of restricted diffusion to suggest acute infarction. The midline structu res are intact. Moderate mucosal thickening within the floor of the left maxillary sinus. The mastoid air cells are clear. The ventricles and sulci are within normal limits for age. There is no mass, he matoma, midline shift. The major vascular flow-voids at the skull base are well maintained. Postcontr ast sequences show no areas of abnormal enhancement. IMPRESSION: No acute intracranial abnormality. Moderate mucosal thickening within the floor of the left maxillary sinus. ACT 112: Negative or not required by law. Electronically signed by: Victor M Munoz M.D. 02/25/2020 12:25 PM
--- NOTE | 2020-02-25 12:41 | Cardiology Consultation ---
Date of Consultation February 25, 2020 Assessment & Plan (1) Atypical chest pain: (2) Hyperlipidemia: (3) Hypertension: (4) Paresthesia of left arm and le-year-old female diagnosed with atypical migraine complaining of atypical resting chest discomfort this a.m. Discomfort present for several years and typically amenable to treatment with lorazepam. Reports normal exercise capacity without anginal symptoms. No evidence of acute coronary syndrome with normal ECG, negative cardiac enzymes, and normal resting 2D transthoracic echocardiogram without regional wall motion abnormality. No further inpatient cardiac testing or intervention at this time. Continue low-dose amlodipine. Outpatient exercise stress echo for further re-stratification recommended. Cardiology will sign off. Please call with questions. History of Present Illness Reason for Consultation: Chest pain Requesting Physician: Dr. Arteaga Attending Physician: Rogelio Arteaga MD History of Present Illness 59-year-old female presented to the ER with nausea, headache, and left-sided numbness. Symptoms began around 9 PM yesterday. Stroke alert was called. Per [place] neurology, atypical migraine considered. Patient prescribed Depakote in ER. This morning, patient reported substernal chest discomfort to nursing staff. Patient reports intermittent chest discomfort for more than 5 years. Discomfort typically occurs at rest and is relieved with Lorazepam at home. She is active and exercises regularly. Hiking several days per week up to 5 miles. Denies any exertional chest discomfort or unusual shortness of breath. Functional capacity is stable. No personal history of coronary disease, congestive heart failure, diabetes, peripheral vascular disease, or rheumatic fever as a child. Reports intermittent elevated blood pressures in the past. She is currently pain-free. Cardiac enzymes are negative x3 sets. Her EKG is normal. Telemetry demonstrates sinus rhythm. Allergies Allergy/AdvReac Type Severity Reaction Status Date / Time carbamazepine Allergy Unknown NAUSEA Verified 02/25/20 01:01 clindamycin AdvReac Mild METALLIC Verified 02/25/20 01:01 TASTE IN MOUTH Home Medications Home Medications Medication Instructions Recorded Confirmed Type lorazepam 0.5 mg PO TID PRN #0 03/21/13 02/25/20 History vitamin B complex 1 tab PO DAILY #0 03/21/13 02/25/20 History atorvastatin 10 mg tablet 10 mg PO DAILY tab 04/01/19 02/25/20 History cetirizine 10 mg tablet 10 mg PO BID PRN tab 04/01/19 02/25/20 History omeprazole 20 mg capsule,delayed 20 mg PO BID cap 04/01/19 02/25/20 History release cyclobenzaprine 10 mg PO BID PRN 02/25/20 02/25/20 History Patient History Medical History Abnormal vaginal bleeding Chronic interstitial cystitis DUB (dysfunctional uterine bleeding) Kidney stone Neuralgia Trigeminal neuralgia Surgical History S/P breast biopsy 2008, needle localization, Dr. Rollins, benign calcifications S/P section S/P colonoscopy S/P endometrial ablation 2014 Family History Mother Ovarian cancer Social History Smoking Status: Never smoker Hx Alcohol Use: No Hx Substance Use: No Preferred Language: Chinese Communication Ability: Effective Furnace Charger Required: No Beliefs That Will Affect Care: None marital status: Current Living Situation: Spouse Other Information That Helps Us Care for You: No Feels Safe at Home: Yes Safety Concerns: Feels Safe At This Time Review of Systems Review of Systems: All systems reviewed & are unremarkable except as noted in Subjective Physical Exam Constitutional: well developed and well nourished; no acute distress Respiratory: normal respiratory effort; no respiratory distress, no labored breathing, no retractions and does not use accessory muscles Auscultation: no diminished lung sounds, no crackles, no rales, no rhonchi and no wheezes Cardiovascular: Rate/Rhythm: regular rate and regular rhythm Heart Sounds: normal S1 and normal S2; no gallop, no murmur and no cardiac rub Palpation: normal PMI Vessels: radial pulses present; no JVD and no carotid bruit Extremities: no edema Gastrointestinal (Abdomen): normal bowel sounds, soft, nontender, no hepatosplenomegaly Skin: no rashes, warm and dry Neurologic: moves all extremities; no focal motor deficits Speech / Cognition: normal speech Motor/Sensory: no tremor Psychiatric: A+Ox3, euthymic affect Results & Data ([facility]) Vital Signs (Past 12 Hours) Vital Signs Temp Pulse Pulse Pulse Resp BP BP 02/25/20 11:00 37.4 C 79 18 02/25/20 09:11 81 18 158/83 H 02/25/20 08:09 36.8 C 74 20 168/86 H 02/25/20 08:00 61 02/25/20 03:52 37.1 C 74 20 02/25/20 03:33 57 L 18 138/78 02/25/20 03:04 60 20 165/92 H 02/25/20 02:00 63 13 151/90 H 02/25/20 01:30 65 20 169/94 H 02/25/20 01:17 67 14 02/25/20 01:15 67 14 183/93 H 02/25/20 01:10 76 22 179/95 H 02/25/20 01:00 70 178/95 H 02/25/20 00:50 70 15 175/92 H 02/25/20 00:47 73 13 BP Pulse Ox 02/25/20 11:00 142/74 H 94 02/25/20 09:11 95 02/25/20 08:09 96 02/25/20 08:00 02/25/20 03:52 171/91 H 95 02/25/20 03:33 97 02/25/20 03:04 95 02/25/20 02:00 96 02/25/20 01:30 96 02/25/20 01:17 96 02/25/20 01:15 96 02/25/20 01:10 97 02/25/20 01:00 96 02/25/20 00:50 95 02/25/20 00:47
[2020-02-25] MEDS ORDERED: STROKE PATIENT DISCHARGE STA (13:21)
--- NOTE | 2020-02-25 13:24 | Discharge Summary ---
Date of Service February 25, 2020 Admission HPI Per Admitting Provider CHIEF COMPLAINT: Headache and left-sided numbness. HISTORY OF PRESENT ILLNESS: This is a 59-year-old female with past medical history significant for allergic rhinitis, GERD, irritable bowel syndrome, history of dislocation of jaw, atypical face pain, chest pain, history of tobacco abuse, who lives at home with her who was brought in because of complaining of nausea, headache, and left-sided numbness. The symptoms started around 9:00 p.m. yesterday evening. As they were not getting better, she was brought to the hospital. Initially stroke alert was called, but the symptoms seemed improved and imaging studies were okay. [place] neurologist thought it could be atypical migraine and she was started on Depakote. Currently, she said that left hand numbness and weakness improved. Thinks the left leg is a little heavy, but also that symptoms are much improved. Speech is okay. No dysphagia. No facial droop seen. The patient also complains of some chest pressure on the left side that is still slightly present. Denies any headache. No dizziness, no blurred visions. She has some floaters in the right eye since 1 month. No earache, no runny nose, no sore throat, no cough, no fevers, no shortness of breath, no abdominal pain. Normal bowel and bladder movements. No rash seen. Otherwise, ambulates and climbs steps okay at home. Principal Diagnosis Complicated migraine with associated left sided numbness and headache Chest Pain (pressure in left chest) Hypertension Hyperlipidemia (controlled) Anxiety Discharge Exam Constitutional comfortable Eyes PERRL, conjunctivae normal, anicteric sclerae EOM intact bilaterally ENMT external ear and nose normal, oropharynx normal Neck trachea midline, no thyromegaly normal visual inspection Respiratory normal respiratory effort, lungs clear to auscultation normal respiratory effort Cardiovascular Rate/Rhythm: regular rate and regular rhythm Gastrointestinal (Abdomen) normal bowel sounds, soft, nontender, no hepatosplenomegaly Musculoskeletal Head/Neck/Chest: normocephalic and head atraumatic Neurologic PERRL, EOMI, accommodation nl, no face palsy, no dysarthria CN's II-XI intact bilaterally Psychiatric A+Ox3, euthymic affect Discharge Data Allergies Allergy/AdvReac Type Severity Reaction Status Date / Time carbamazepine Allergy Unknown NAUSEA Verified 02/25/20 01:01 clindamycin AdvReac Mild METALLIC Verified 02/25/20 01:01 TASTE IN MOUTH Consultations 02/25/20 01:42 ED Decision to Admit Stat 02/25/20 04:01 Consult Case Management - Discharge Planning Routine Consult Case Management - Discharge Planning Routine 02/25/20 08:00 Consult Neurology Routine 02/25/20 09:14 Consult Cardiology Routine Ordered Studies 02/25/20 00:25 CT angio head w con Urgent CT angio neck with con Urgent CT head/brain wo con Urgent 02/25/20 04:01 MR brain wo/w con Routine Hospital Course (1) Complicated migraine: with associated left sided numbness and headache -Patient presented to hospital overnight after feeling nausea, headache, chest discomfort and left-sided numbness. Symptom started around 9PM on 02/24/2020 -Initial workup with a CT of the head and CTA of the head and neck are unremarkable. [place] neurologist thought it could be atypical migraine and started on Depakote. She was getting a dose of Depakote in the ER. -aspirin 81 mg daily empirically started -Patient's blood pressure was found to be elevated and patient reports that in the recent past prior to these symptoms, here systolic blood pressure around 150 to 160 but not more elevated than that. her blood systolic blood pressure in the ED as elevated as 182. Patient is not on any anti-hypertensives at home. -Patient in the AM when seen by day time hospitalist reports that all symptoms have resolved. She does not have any acute discomforts or numbness at this time. She reports that symptoms started resolving when she was in the ED. Patient is encouraged to ambulate in the hallway in the hospital -started amlodipine 5 mg daily for blood pressure. added sumatriptan q12 hour prn if headache -MRI brain 02/25/2020: No acute intracranial abnormality. Moderate mucosal thickening within the floor of the left maxillary sinus. -neurology Dr. Bautista suggests "the patient to keep a headache log. If headaches persist, will discuss headache prophylactic medications as an outpatient. Neurology follow up in 8 weeks." -discharge medication sent to [facility] [address] [place] [address] amlodipine 5 mg daily (next dose to be started on 02/26/2020) aspirin 81 mg daily sumatriptan 25 mg every 12 hours as needed for migraine headache -continue home dose medication of atorvastatin 10 mg daily for cholesterol and lipid control (2) Hypertension: Hyperlipidemia (controlled) -start amlodipine 5 mg daily -LDL is 79, can continue home dose atorvastatin as 10 mg daily as lipid panel shows reasonable controlled cholesterol and LDL (3) Chest pain: -chest pain was associated with headache and left sided numbness symptoms -troponins negative x 3 -cardiology Dr. Thomas "No evidence of acute coronary syndrome with normal ECG, negative cardiac enzymes, and normal resting 2D transthoracic echocardiogram without regional wall motion abnormality. No further inpatient cardiac testing or intervention at this time. Continue low-dose amlodipine. Outpatient exercise stress echo for further re-stratification recommended." -Patient has upcoming appointment with primary care doctor after this weekend. coordination of neurology and cardiology follow ups as per primary care doctor Gastroesophageal reflux disease -continue PPI Hypokalemia, mild -serum potassium 3.3 on initial labs she was given potassium supplements and serum potassium recently 3.4 (4) Anxiety: -patient has Ativan medication for anxiety and patient should discuss with primary care doctor whether patient should be referred to outpatient [facility] health doctor for management of anxiety -after all evaluations were done by specialist and imaging exams, patient and her was discussed the results at length by hospitalist, patient asymptomatic, options provided were further monitoring in the hospital versus discharge from hospital depending on patient's preference. Patient prefers to be discharged on 02/25/2020 without further monitoring Total Time Total Time Spent Total Time Spent (In Minutes): 40 minutes Total Time Includes: Examination of the Patient, Discharge Planning, Medication Reconciliation and Communication With Other Providers Discharge Plan Discharge Items Patient Disposition: Home - Self-Care Reason For Visit: HEADACHE AND LEFT SIDED NUMBNESS Discharge Diagnosis: Complicated migraine with associated left sided numbness and headache Chest Pain (pressure in left chest) Hypertension Hyperlipidemia (controlled) Anxiety Condition on Discharge: Good Activity: Resume your previous activity Non-emergency contact: Primary Care Provider Call non-emergency contact if: you have any medication questions Follow-up/Referrals: Shawnee Amor MD [Primary Care Provider] - Diet: Heart Healthy Addtl Attending Provider Instructions: discharge medication sent to [facility] [address] [place] [address] amlodipine 5 mg daily (next dose to be started on 02/26/2020) aspirin 81 mg daily sumatriptan 25 mg every 12 hours as needed for migraine headache continue home dose medication of atorvastatin 10 mg daily for cholesterol and lipid control neurology Dr. Bautista suggests "the patient to keep a headache log. If headaches persist, will discuss headache prophylactic medications as an outpatient. Neurology follow up in [address] Thomas "No evidence of acute coronary syndrome with normal ECG, negative cardiac enzymes, and normal resting 2D transthoracic echocardiogram without regional wall motion abnormality. No further inpatient cardiac testing or intervention at this time. Continue low-dose amlodipine. Outpatient exercise stress echo for further re-stratification recommended." Patient has upcoming appointment with primary care doctor after this weekend. coordination of neurology and cardiology follow ups as per primary care doctor patient has Ativan medication for anxiety and patient should discuss with primary care doctor whether patient should be referred to outpatient [facility] health doctor for management of anxiety Pending Studies at Discharge: No Stand-Alone Forms: [employer], Smoking Cessation Medications and DC Order Prescriptions: New sumatriptan succinate 25 mg Tablet 25 mg PO Q12H PRN (Reason: migraine headache) 15 Days Qty: 30 RF: 0 aspirin 81 mg Tablet,Delayed Release (Dr/Ec) 81 mg PO QAM 30 Days Qty: 30 RF: 0 amlodipine 5 mg tablet 5 mg PO DAILY 30 Days Qty: 30 RF: 0 Continued lorazepam 0.5 mg Tablet 0.5 mg PO TID PRN (Reason: Anxiety) Qty: 0 RF: 0 vitamin B complex Tablet 1 tab PO DAILY Qty: 0 RF: 0 atorvastatin 10 mg tablet 10 mg PO DAILY RF: 0 omeprazole 20 mg capsule,delayed release(DR/EC) 20 mg PO BID RF: 0 cetirizine 10 mg tablet 10 mg PO BID PRN (Reason: Allergy Symptoms) RF: 0 cyclobenzaprine 10 mg tablet 10 mg PO BID PRN (Reason: Muscle Spasm) RF: 0 Discharge Orders: Discharge Order (Routine); Ordered 02/25/20 Ordered By: Rogelio Arteaga Admission Data Admit Date/Time: 02/25/20 02:52 Attending Provider: Rogelio Arteaga Admit Provider: Channing Roque Primary Care Provider: Shawnee Amor Other Providers: Channing Roque ; Kristal Chopra ; Martin Keen ; Kristal Lockett ; Guadencio Ferris ; Josef Thomas
[2020-02-26] MEDS ORDERED: AMLODIPINE BESYLATE 5 MG TAB PO SCH (09:00)
--- NOTE | 2020-02-27 08:43 | Electrocardiogram Report ---
Test Reason : Blood Pressure : / mmHG Vent. Rate : 086 BPM Atrial Rate : 086 BPM P-R Int : 152 ms QRS Dur : 078 ms QT Int : 404 ms P-R-T Axes : 066 027 069 degrees QTc Int : 483 ms Poor data quality, interpretation may be adversely affected Normal sinus rhythm Incomplete right bundle branch block Left atrial enlargement Abnormal ECG When compared with ECG of 26-MAY-2018 22:31, Incomplete right bundle branch block now present Otherwise no significant change Confirmed by Trent Garner ([id number]) on 02/27/2020 8:42:34 AM Referred By: REFERRED SELF Confirmed By:Trent Garner
--- NOTE | 2020-02-27 09:01 | Electrocardiogram Report ---
Test Reason : Blood Pressure : / mmHG Vent. Rate : 074 BPM Atrial Rate : 074 BPM P-R Int : 148 ms QRS Dur : 076 ms QT Int : 400 ms P-R-T Axes : 054 044 071 degrees QTc Int : 444 ms Normal sinus rhythm Normal ECG When compared with ECG of 25-FEB-2020 00:49, Incomplete right bundle branch block no longer present Otherwise no significant change Confirmed by Trent Garner ([id number]) on 02/27/2020 9:00:52 AM Referred By: REFERRED SELF Confirmed By:Trent Garner
== END 2020-02-25 14:34 | disposition home or self-care (01) ==
LOC: ED 00:23 → 2S 00:23